=== PATIENT | male | born 1945 | race Caucasian/White ===

== ENCOUNTER 2024-09-13 15:21 | Outpatient (CLI) | payer MEDICARE, BC | END 2024-09-13 15:22 | disposition home or self-care (01) | LOC: RAD 15:21 | PROVIDERS: ATTEND Student in an Organized Health Care Education/Training Program | DX: J95.811 Postprocedural pneumothorax (principal); R91.8 Other nonspecific abnormal finding of lung field; J98.4 Other disorders of lung | CPT/HCPCS: 71046 ==